=== PATIENT | male | born 1985 | race Caucasian/White ===

== ENCOUNTER 2017-09-30 12:35 | Inpatient (IN) | payer BC ==
--- NOTE | 2017-09-30 20:23 | HP ---
COWS - Scale Resting Pulse: 2= [place] 101-120 Sweatin=Flushed/Facial Moisture Restless Observation: 1= Difficult to Sit Still Pupil Size: 1= Pupils >than Normal Bone or Joint Aches: 2= Severe Diffuse Aches Runny Nose/ Eye Tearin= Nasal Congestion GI Upset > 30mins: 2= Nausea/Diarrhea Tremor Observation: 2= Slight Tremor Visible Yawning Observation: 0= None Anxiety or Irritability: 1=Feels Anxious/Irritable Goose Flesh Skin: 0=Smooth Skin COWS Score: 14 CIWA Score - CIWA Score Nausea/Vomitin Muscle Tremors: 3 Anxiety: 3 Agitation: 2 Paroxysmal Sweats: 3 Orientation: 0-Oriented Tacttile Disturbances: 2-Mild Itch/Numbness/Burn Auditory Disturbances: 2-Mild Harshness/Frighten Visual Disturbances: 2-Mild Sensitivity Headache: 2-Mild CIWA-Ar Total Score: 22 Admission ROS BHS - HPI Chief Complaint: DEPENDENT ON ETOH ONLY USED MARIJUANA ONLY ONCE TODAY AND NEVER BEFORE ON [facility] - 145 MGS. - LAST DOSE THIS AM Allergies/Adverse Reactions: Allergies Allergy/AdvReac Type Severity Reaction Status Date / Time diphenhydramine Allergy Verified 09/30/17 20:22 [From Benadryl] CARO Allergy Uncoded 09/30/17 20:22 Exam Limitations: No Limitations - Ebola screening Have you traveled outside of the country in the last 21 days: No (N) Have you had contact with anyone from an Ebola affected area: No Have you been sick,other than usual withdrawal symptoms: No Do you have a fever: No - Review of Systems Constitutional: See HPI, Malaise, Weakness EENT: reports: See HPI, Nose Congestion Respiratory: reports: See HPI Cardiac: reports: See HPI, Syncope GI: reports: See HPI, Nausea, Vomiting, Abdominal cramping : reports: No Symptoms Reported, See HPI Musculoskeletal: reports: See HPI, Back Pain, Muscle Pain, Muscle Weakness Integumentary: reports: See HPI, Flushing, Sweating Neuro: reports: See HPI, Headache, Tremors, Weakness Endocrine: reports: See HPI Hematology: reports: See HPI Psychiatric: reports: Judgement Intact, Orientated x3, Anxious Patient History - Patient Medical History Hx Asthma: No Hx Chronic Obstructive Pulmonary Disease (COPD): No Hx Cardiac Disorders: No Hx Hypertension: No Hx Seizures: No Hx Diabetes: No Hx Gastrointestinal Disorders: No Hx Genitourinary Disorders: No Hx Sexually Transmitted Disorders: No Hx Renal Disease (ESRD): No Hx Human Immunodeficiency Virus (HIV): No Hx Hepatitis C: No Hx Depression: No Hx Suicide Attempt: No Hx Schizophrenia: No Other Medical History: PTSD AND ADD; CH. LBP.; OBESITY - Patient Surgical History Past Surgical History: Yes Hx Neurologic Surgery: No Hx Cataract Extraction: No Hx Cardiac Surgery: No Hx Lung Surgery: No Hx Breast Surgery: No Hx Breast Biopsy: No Hx Abdominal Surgery: Yes (RADHA. INGUINAL HERNIA REPAIR 14 YRS. AGO.) Hx Appendectomy: No Hx Cholecystectomy: No Hx Genitourinary Surgery: No Hx Section: No Hx Orthopedic Surgery: No Anesthesia Reaction: No - PPD History Previous Implant?: Yes Documented Results: Negative w/o proof - Smoking Cessation Smoking history: Current every day smoker Have you smoked in the past 12 months: Yes Aproximately how many cigarettes per day: 40 Hx Chewing Tobacco Use: No Initiated information on smoking cessation: Yes 'Breaking Loose' booklet given: 09/30/17 - Substance & Tx. History Hx Alcohol Use: Yes Hx Substance Use: Yes Substance Use Type: Marijuana, Prescribed Hx Substance Use Treatment: Yes - Substances Abused Alcohol Route: Oral Frequency: Daily Amount used: LIQUOR- 3 -4 PINT Age of first use: 30 Date of Last Use: 09/30/17 Marijuana/Hashish Route: Smoking Frequency: Daily Amount used: ONE J ONLY ONCE TODAY Age of first use: 32 Date of Last Use: 09/30/17 Family Disease History - Family Disease History Family Disease History: Other: Father (STOPPED ETOH SEVERAL YRS. AGO) Admission Physical Exam S - Vital Signs Vital Signs: Vital Signs - 24 hr 09/30/17 17:03 Temperature 97.2 F L Pulse Rate 101 H Respiratory 18 Rate Blood Pressure 155/99 - Physical General Appearance: Yes: No Apparent Distress, Nourished, Alcohol on Breath, Obese, Tremorous, Sweating, Anxious HEENTM: Yes: Hearing grossly Normal, Normocephalic, Normal Voice, KEELY, Pharynx Normal, Nasal Congestion Respiratory: Yes: Chest Non-Tender, Lungs Clear, Normal Breath Sounds, No Respiratory Distress, No Accessory Muscle Use Neck: Yes: No masses,lesions,Nodules, Supple, Trachea in good position Breast: Yes: Breast Exam Deferred, Axillae without masses, No masses Cardiology: Yes: Regular Rhythm, S1, S2, Tachycardia Abdominal: Yes: Normal Bowel Sounds, Non Tender, Soft, Protuberent, Distended Back: Yes: Decreased Range of Motion, Muscle Spasm Musculoskeletal: Yes: full range of Motion, Gait Steady, Back pain, Muscle Pain , Muscle weakness Extremities: Yes: Normal Capillary Refill, Normal Range of Motion, Non-Tender, Tremors Neurological: Yes: Fully Oriented, Alert, Motor Strength 5/5, Normal Response, Depressed Affect Integumentary: Yes: Warm, Moist Lymphatic: Yes: Within Normal Limits - Diagnostic (1) EtOH dependence Current Visit: Yes Status: Chronic Qualifiers: Substance use status: uncomplicated Qualified Code(s): F10.20 - Alcohol dependence, uncomplicated (2) Obesity Current Visit: Yes Status: Chronic Qualifiers: Obesity classification: unspecified obesity classification (3) Methadone maintenance therapy patient Current Visit: Yes Status: Chronic (4) Chronic low back pain Current Visit: Yes Status: Chronic Qualifiers: Back pain laterality: midline (5) PTSD (post-traumatic stress disorder) Current Visit: Yes Status: Acute (6) ADD (attention deficit disorder) Current Visit: Yes Status: Acute Cleared for Admission [facility] - Detox or Rehab [facility] Level of Care: Medically Managed Detox Regimen/Protocol: Librium [facility] Breath Alcohol Content Breath Alcohol Content: 0.184 Urine Drug Screen - Results Drug Screen Negative: No Urine Drug Screen Results: THC-Marijuana, CRISTAL-Cocaine, MTD-Methadone
[2017-09-30] MEDS ORDERED: P-EPHED 60MG/TRIPROLIDI 2.5MG TABLET PO PRN (20:38)
[2017-09-30] MEDS ORDERED: chlordiazePOXIDE HCL 25 MG CAPSULE PO PRN (20:38)
[2017-09-30] MEDS ORDERED: guaiFENesin/D-METHORPHAN HB 10 ML UNIT-DOSE CUPS PO PRN (20:38)
[2017-09-30] MEDS ORDERED: MENTHOL/PHENOL 1 EACH UD MM PRN (20:38)
[2017-09-30] MEDS ORDERED: LOPERAMIDE HCL 2 MG CAPSULE PO PRN (20:38)
[2017-09-30] MEDS ORDERED: chlordiazePOXIDE HCL 25 MG CAPSULE PO ONE (20:38)
[2017-09-30] MEDS ORDERED: MAGNESIUM CITRATE 300 ML BOTTLE PO PRN (20:38)
[2017-09-30] MEDS ORDERED: MAG HYDROX/AL HYDROX/SIMETH 30 ML UNIT-DOSE CUP PO PRN (20:38)
[2017-09-30] MEDS ORDERED: ACETAMINOPHEN 325 MG TABLET (FP) PO PRN (20:38)
[2017-09-30] MEDS ORDERED: MAGNESIUM HYDROX 2400MG/30ML ORAL SUSPENSION 30 ML CUP PO PRN (20:38)
[2017-09-30] MEDS: chlordiazePOXIDE HCL 25 MG CAPSULE PO SCH (22:40)
[2017-09-30] MEDS: THIAMINE HCL 100 MG TABLET (FP) PO SCH (22:40)
[2017-09-30] MEDS: MELATONIN 5 MG TABLETS PO PRN (22:40)
[2017-10-01 01:23] LABS: URINE APPEARANCE TURBID; URINE BILIRUBIN NEGATIVE (<2.0 mg/dL); URINE BLOOD NEGATIVE (NEGATIVE); URINE COLOR YELLOW; URINE GLUCOSE (UA) NEGATIVE (NEGATIVE); URINE KETONE NEGATIVE (NEGATIVE); URINE LEUK ESTERASE TRACE (NEGATIVE); URINE NITRITE NEGATIVE (NEGATIVE); URINE UROBILINOGEN 4.0 E.U/dl mg/dL (0.2-1.0)
[2017-10-01 01:28] LABS: URINE PROTEIN 1+ (NEGATIVE)
[2017-10-01 02:03] LABS: AMORP URATES MANY /hpf (NONE SEEN)
[2017-10-01 02:04] LABS: URINE MUCUS MODERATE
[2017-10-01] MEDS: chlordiazePOXIDE HCL 25 MG CAPSULE PO SCH ×4 (05:45→22:27)
[2017-10-01] MEDS ORDERED: METHADONE 120 MG, METHADONE 20 MG, METHADONE 5 MG PO SCH (06:00)
[2017-10-01] MEDS ORDERED: METHADONE HCL 10 MG TABLET PO SCH (09:15)
[2017-10-01] MEDS: PRENATAL VITAMINS W/ FOLIC ACID TABLET (FP) PO SCH (10:24)
[2017-10-01] MEDS: NICOTINE 21 MG/24 HOURS TOPICAL PATCH TD SCH (10:24)
[2017-10-01 10:37] LABS: HEMATOCRIT 40.2 % (35.4-49); HEMOGLOBIN 13.6 GM/dL (11.7-16.9); MCHC 33.8 g/dl (32.0-35.9); MEAN CELL VOLUME 97.6 fl (80-96); MEAN PLT VOLUME 7.3 fl (7.5-11.1); PLATELET COUNT 215 K/MM3 (134-434); RBC 4.12 M/mm3 (4.00-5.60); WHITE BLOOD COUNT 5.8 K/mm3 (4.0-10.0)
[2017-10-01 10:47] LABS: ALBUMIN 3.5 g/dl (3.4-5.0); ANION GAP 5 (8-16); BLOOD UREA NITROGEN 10 mg/dL (7-18); CALCIUM 8.4 mg/dL (8.5-10.1); CHLORIDE 102 mmol/L (98-107); CO2 34 mmol/L (21-32); GLUCOSE,RANDOM 88 mg/dL (74-106); POTASSIUM 3.9 mmol/L (3.5-5.1); SODIUM 141 mmol/L (136-145)
[2017-10-01] MEDS ORDERED: METHADONE HCL 5 MG TABLET ONE (10:50)
[2017-10-01 10:51] LABS: ALK PHOS 162 U/L (45-117); BILIRUBIN,TOTAL 1.2 mg/dL (0.2-1.0); CREATININE 0.8 mg/dL (0.7-1.3); SGOT/AST 346 U/L (15-37); SGPT/ALT 214 U/L (12-78); TOT PROT 7.2 g/dl (6.4-8.2)
[2017-10-01] MEDS ORDERED: METHADONE HCL 10 MG TABLET ONE (10:52)
[2017-10-01] MEDS ORDERED: METHADONE HCL 40 MG DISPERSABLE TABLET ONE (10:52)
[2017-10-01] MEDS: METHADONE 120 MG, METHADONE 20 MG, METHADONE 5 MG PO SCH (10:53)
--- NOTE | 2017-10-01 16:33 | CONSULT ---
[facility] Psychiatric Consult - Data Date of interview: 10/01/17 Admission source: [facility] Identifying data: First admission to [facility] for this 32 y/o male seeking detox treatment on for alcohol and cannabis dependence.Patient is single without dependents,domiciled,unemployed and supported by relatives. Substance Abuse History: Discussed with the patient.Mr Blackmon confirmed his self -report at [facility] on admission.Details as follows : Smoking history: Current every day smoker. Have you smoked in the past 12 months: Yes. Aproximately how many cigarettes per day: 40. Hx Chewing Tobacco Use: No. Initiated information on smoking cessation: Yes. 'Breaking Loose' booklet given: 09/30/17. - Substance & Tx. History. Hx Alcohol Use: Yes. Hx Substance Use: Yes. Substance Use Type : Marijuana, Prescribed. Hx Substance Use Treatment: Yes. - Substances Abused. Alcohol. Route: Oral. Frequency: Daily. Amount used: LIQUOR- 3 - 4 PINT. Age of first use: 30. Date of Last Use: 09/30/17. Marijuana/ Hashish. Route: Smoking. Frequency: Daily. Amount used: ONE J ONLY ONCE TODAY. Age of first use: 32. Date of Last Use: 09/30/17 Medical History: Obseity,lumbar pain,chronic cervical pain and a remote history of bilateral herniorraphy. Psychiatric History: No reported history of psychiatric hopsitalizations.Patient is diagnosed with ADD and PTSD.Mr Blackmon currently sees a psychiatrist at a clinic in [facility].Prescribed adderall 20 mg po bid.Patient is also on methadone maintenance (145 mg/day) at the [facility] ([place]).Denies history of suicide attempts. Physical/Sexual Abuse/Trauma History: Patient declines to discuss this domain. Additional Comment: Urine Drug Screen Results: THC-Marijuana, CRISTAL-Cocaine, MTD- Methadone.Noted. Mental Status Exam - Mental Status Exam Alert and Oriented to: Time, Place, Person Cognitive Function: Good Patient Appearance: Well Groomed Mood: Nervous, Withdrawn, Anxious Affect: Mood Congruent Patient Behavior: Fatigued, Appropriate, Cooperative Speech Pattern: Clear, Appropriate Voice Loudness: Normal Thought Process: Intact, Goal Oriented Thought Disorder: Not Present Hallucinations: Denies Suicidal Ideation: Denies Homicidal Ideation: Denies Insight/Judgement: Poor Sleep: Poorly, Difficulty falling asleep Appetite: Good Muscle strength/Tone: Normal Gait/Station: Normal Psychiatric Findings - Problem List ([place] 1, 2,3) (1) Opioid dependence on agonist therapy Current Visit: Yes Status: Acute (2) Alcohol dependence Current Visit: Yes Status: Acute (3) Cocaine dependence Current Visit: Yes Status: Acute (4) Marihuana dependence Current Visit: Yes Status: Acute (5) Nicotine dependence Current Visit: Yes Status: Acute (6) ADD (attention deficit disorder) Current Visit: Yes Status: Acute (7) PTSD (post-traumatic stress disorder) Current Visit: Yes Status: Acute (8) History of bipolar disorder Current Visit: Yes Status: Chronic (9) Substance induced mood disorder Current Visit: Yes Status: Acute (10) Insomnia Current Visit: Yes Status: Acute - Initial Treatment Plan Initial Treatment Plan: Psychoeducation.Sleep hygiene discussed in this session.Detoxification in progress.Trazodone 50 mg po hs (patient's request).Mr Blackmon is made aware of the risk of priapism." I have taken trazodone before and I slept much better without any problem ".Patient agrees with this careplan.Observation.Medications are confirmed by pharmacy claims at [facility] [employer] (08/25/17).
--- NOTE | 2017-10-01 19:20 | PN ---
S CIWA - CIWA Score Nausea/Vomitin Muscle Tremors: 3 Anxiety: 3 Agitation: 3 Paroxysmal Sweats: 2 Orientation: 0-Oriented Tacttile Disturbances: 0-None Auditory Disturbances: 0-None Visual Disturbances: 0-None Headache: 0-None Present CIWA-Ar Total Score: 14 BHS Progress Note (SOAP) Subjective: shakes sweats sleep disturbance Objective: 10/01/17 19:18 A & O x 3 Anxious Vital Signs Temperature 97.5 F L 10/01/17 18:26 Pulse Rate 72 10/01/17 18:26 Respiratory Rate 18 10/01/17 18:26 Blood Pressure 133/81 10/01/17 18:26 O2 Sat by Pulse Oximetry (%) Laboratory Last Values WBC 5.8 K/mm3 (4.0-10.0) 10/01/17 07:50 RBC 4.12 M/mm3 (4.00-5.60) 10/01/17 07:50 Hgb 13.6 GM/dL (11.7-16.9) 10/01/17 07:50 Hct 40.2 % (35.4-49) 10/01/17 07:50 MCV 97.6 fl (80-96) H 10/01/17 07:50 MCH 33.0 pg (25.7-33.7) 10/01/17 07:50 MCHC 33.8 g/dl (32.0-35.9) 10/01/17 07:50 RDW 14.0 % (11.9-15.9) 10/01/17 07:50 Plt Count 215 K/MM3 (134-434) 10/01/17 07:50 MPV 7.3 fl (7.5-11.1) L 10/01/17 07:50 Sodium 141 mmol/L (136-145) 10/01/17 07:50 Potassium 3.9 mmol/L (3.5-5.1) 10/01/17 07:50 Chloride 102 mmol/L (98-107) 10/01/17 07:50 Carbon Dioxide 34 mmol/L (21-32) H 10/01/17 07:50 Anion Gap 5 (8-16) L 10/01/17 07:50 BUN 10 mg/dL (7-18) 10/01/17 07:50 Creatinine 0.8 mg/dL (0.7-1.3) 10/01/17 07:50 Creat Clearance w eGFR > 60 (>60) 10/01/17 07:50 Random Glucose 88 mg/dL (74-106) 10/01/17 07:50 Calcium 8.4 mg/dL (8.5-10.1) L 10/01/17 07:50 Total Bilirubin 1.2 mg/dL (0.2-1.0) H 10/01/17 07:50 AST 346 U/L (15-37) H 10/01/17 07:50 ALT 214 U/L (12-78) H 10/01/17 07:50 Alkaline Phosphatase 162 U/L (45-117) H 10/01/17 07:50 Total Protein 7.2 g/dl (6.4-8.2) 10/01/17 07:50 Albumin 3.5 g/dl (3.4-5.0) 10/01/17 07:50 Urine Color Yellow 09/30/17 22:23 Urine Appearance Turbid 09/30/17 22:23 Urine pH 6.0 (5.0-8.0) 09/30/17 22:23 Ur Specific [place] 1.029 (1.001-1.035) 09/30/17 22:23 Urine Protein 1+ (NEGATIVE) H 09/30/17 22:23 Urine Glucose (UA) Negative (NEGATIVE) 09/30/17 22:23 Urine Ketones Negative (NEGATIVE) 09/30/17 22:23 Urine Blood Negative (NEGATIVE) 09/30/17 22:23 Urine Nitrite Negative (NEGATIVE) 09/30/17 22: Urine Bilirubin Negative (<2.0 mg/dL) 09/30/17 22: Urine Urobilinogen 4.0 e.u/dl mg/dL (0.2-1.0) 09/30/17 22:23 Ur Leukocyte Esterase Trace (NEGATIVE) 09/30/17 22: Urine WBC (Auto) None seen /hpf (3-5) 09/30/17 22:23 Urine RBC (Auto) None seen /hpf (0-3) 09/30/17 22:23 Amorphous Urates Many /hpf (NONE SEEN) 09/30/17 22:23 Urine Mucus Moderate 09/30/17 22:23 RPR Titer Nonreactive (NONREACTIVE) 10/01/17 07:50 labs noted Assessment: 10/01/17 19:20 withdrawal sx Plan: continue detox Increase hydration
[2017-10-01] MEDS: traZODone HCL 50 MG TABLET (FP) PO SCH (22:27)
[2017-10-01] MEDS: THIAMINE HCL 100 MG TABLET (FP) PO SCH (22:27)
[2017-10-02] MEDS ORDERED: METHADONE HCL 10 MG TABLET ONE (04:18)
[2017-10-02] MEDS ORDERED: METHADONE HCL 40 MG DISPERSABLE TABLET ONE (04:18)
[2017-10-02] MEDS ORDERED: METHADONE HCL 5 MG TABLET ONE (04:18)
[2017-10-02] MEDS: chlordiazePOXIDE HCL 25 MG CAPSULE PO SCH ×3 (05:38→16:56)
[2017-10-02] MEDS: METHADONE 120 MG, METHADONE 20 MG, METHADONE 5 MG PO SCH (05:39)
[2017-10-02] MEDS ORDERED: METHADONE 120 MG, METHADONE 20 MG, METHADONE 5 MG PO SCH (06:00)
[2017-10-02] MEDS: PRENATAL VITAMINS W/ FOLIC ACID TABLET (FP) PO SCH (10:20)
[2017-10-02] MEDS: NICOTINE 21 MG/24 HOURS TOPICAL PATCH TD SCH (10:20)
[2017-10-02] MEDS: hydrOXYzine PAMOATE 50 MG CAPSULE (FP) PO PRN ×3 (10:23→20:50)
--- NOTE | 2017-10-02 11:57 | PN ---
[facility] CIWA - CIWA Score Nausea/Vomitin-No Nausea/No Vomiting Muscle Tremors: 4-Moderate,w/Arms Extend Anxiety: 2 Agitation: 3 Paroxysmal Sweats: 3 Orientation: 0-Oriented Tacttile Disturbances: 0-None Auditory Disturbances: 0-None Visual Disturbances: 0-None Headache: 0-None Present CIWA-Ar Total Score: 12 S Progress Note (SOAP) Subjective: leg cramps sweats shakes interrupted sleep body aches Objective: 10/02/17 11:56 Vital Signs Temperature 97.7 F 10/02/17 10:22 Pulse Rate 74 10/02/17 10:22 Respiratory Rate 18 10/02/17 10:22 Blood Pressure 116/64 10/02/17 10:22 O2 Sat by Pulse Oximetry (%) Laboratory Tests 09/30/17 10/01/17 10/01/17 22:23 07:50 07:50 WBC 5.8 RBC 4.12 Hgb 13.6 Hct 40.2 MCV 97.6 H MCH 33.0 MCHC 33.8 RDW 14.0 Plt Count 215 MPV 7.3 L Sodium 141 Potassium 3.9 Chloride 102 Carbon Dioxide 34 H Anion Gap 5 L BUN 10 Creatinine 0.8 Creat Clearance w eGFR > 60 Random Glucose 88 Calcium 8.4 L Total Bilirubin 1.2 H AST 346 H ALT 214 H Alkaline Phosphatase 162 H Total Protein 7.2 Albumin 3.5 Urine Color Yellow Urine Appearance Turbid Urine pH 6.0 Ur Specific [place] 1.029 Urine Protein 1+ H Urine Glucose (UA) Negative Urine Ketones Negative Urine Blood Negative Urine Nitrite Negative Urine Bilirubin Negative Urine Urobilinogen 4.0 e.u/dl Ur Leukocyte Esterase Trace Urine WBC (Auto) None seen Urine RBC (Auto) None seen Amorphous Urates Many Urine Mucus Moderate RPR Titer 10/01/17 07:50 WBC RBC Hgb Hct MCV MCH MCHC RDW Plt Count MPV Sodium Potassium Chloride Carbon Dioxide Anion Gap BUN Creatinine Creat Clearance w eGFR Random Glucose Calcium Total Bilirubin AST ALT Alkaline Phosphatase Total Protein Albumin Urine Color Urine Appearance Urine pH Ur Specific [place] Urine Protein Urine Glucose (UA) Urine Ketones Urine Blood Urine Nitrite Urine Bilirubin Urine Urobilinogen Ur Leukocyte Esterase Urine WBC (Auto) Urine RBC (Auto) Amorphous Urates Urine Mucus RPR Titer Nonreactive aaox3 ambulating no acute distress elevated ast/alt d/c tylenol Assessment: 10/02/17 11:56 withdrawal sx Plan: continue detox increase fluids flexiril prn repeat ast/alt blood work
[2017-10-02] MEDS: CYCLOBENZAPRINE HCL 10 MG TABLET (FP) PO PRN ×2 (13:24→22:09)
[2017-10-02] MEDS: IBUPROFEN 400 MG TABLET (FP) PO PRN ×2 (16:57→22:09)
[2017-10-02] MEDS: traZODone HCL 50 MG TABLET (FP) PO SCH (22:09)
[2017-10-02] MEDS: chlordiazePOXIDE 5 MG CAPSULE PO SCH (22:09)
[2017-10-02] MEDS: THIAMINE HCL 100 MG TABLET (FP) PO SCH (22:10)
[2017-10-03] MEDS ORDERED: METHADONE HCL 5 MG TABLET ONE (04:56)
[2017-10-03] MEDS ORDERED: METHADONE HCL 40 MG DISPERSABLE TABLET ONE (04:57)
[2017-10-03] MEDS ORDERED: METHADONE HCL 10 MG TABLET ONE (04:57)
[2017-10-03] MEDS: METHADONE 120 MG, METHADONE 20 MG, METHADONE 5 MG PO SCH (05:34)
[2017-10-03] MEDS: chlordiazePOXIDE 5 MG CAPSULE PO SCH ×3 (05:34→17:07)
[2017-10-03] MEDS: NICOTINE 21 MG/24 HOURS TOPICAL PATCH TD SCH (10:17)
[2017-10-03] MEDS: PRENATAL VITAMINS W/ FOLIC ACID TABLET (FP) PO SCH (10:17)
[2017-10-03] MEDS: hydrOXYzine PAMOATE 50 MG CAPSULE (FP) PO PRN ×2 (10:17→18:25)
--- NOTE | 2017-10-03 10:20 | PN ---
BHS Progress Note (SOAP) Subjective: feeling better less tremor no sweat slept better at night Objective: 10/03/17 10:18 Vital Signs Temperature 97.7 F 10/03/17 09:39 Pulse Rate 65 10/03/17 09:39 Respiratory Rate 20 10/03/17 09:39 Blood Pressure 107/64 10/03/17 09:39 O2 Sat by Pulse Oximetry (%) Laboratory Last Values WBC 5.8 K/mm3 (4.0-10.0) 10/01/17 07:50 RBC 4.12 M/mm3 (4.00-5.60) 10/01/17 07:50 Hgb 13.6 GM/dL (11.7-16.9) 10/01/17 07:50 Hct 40.2 % (35.4-49) 10/01/17 07:50 MCV 97.6 fl (80-96) H 10/01/17 07:50 MCH 33.0 pg (25.7-33.7) 10/01/17 07:50 MCHC 33.8 g/dl (32.0-35.9) 10/01/17 07:50 RDW 14.0 % (11.9-15.9) 10/01/17 07:50 Plt Count 215 K/MM3 (134-434) 10/01/17 07:50 MPV 7.3 fl (7.5-11.1) L 10/01/17 07:50 Sodium 141 mmol/L (136-145) 10/01/17 07:50 Potassium 3.9 mmol/L (3.5-5.1) 10/01/17 07:50 Chloride 102 mmol/L (98-107) 10/01/17 07:50 Carbon Dioxide 34 mmol/L (21-32) H 10/01/17 07:50 Anion Gap 5 (8-16) L 10/01/17 07:50 BUN 10 mg/dL (7-18) 10/01/17 07:50 Creatinine 0.8 mg/dL (0.7-1.3) 10/01/17 07:50 Creat Clearance w eGFR > 60 (>60) 10/01/17 07:50 Random Glucose 88 mg/dL (74-106) 10/01/17 07:50 Calcium 8.4 mg/dL (8.5-10.1) L 10/01/17 07:50 Total Bilirubin 1.2 mg/dL (0.2-1.0) H 10/01/17 07:50 AST 346 U/L (15-37) H 10/01/17 07:50 ALT 214 U/L (12-78) H 10/01/17 07:50 Alkaline Phosphatase 162 U/L (45-117) H 10/01/17 07:50 Total Protein 7.2 g/dl (6.4-8.2) 10/01/17 07:50 Albumin 3.5 g/dl (3.4-5.0) 10/01/17 07:50 Urine Color Yellow 09/30/17 22:23 Urine Appearance Turbid 09/30/17 22:23 Urine pH 6.0 (5.0-8.0) 09/30/17 22:23 Ur Specific [place] 1.029 (1.001-1.035) 09/30/17 22:23 Urine Protein 1+ (NEGATIVE) H 09/30/17 22:23 Urine Glucose (UA) Negative (NEGATIVE) 09/30/17 22:23 Urine Ketones Negative (NEGATIVE) 09/30/17 22:23 Urine Blood Negative (NEGATIVE) 09/30/17 22: Urine Nitrite Negative (NEGATIVE) 09/30/17 22: Urine Bilirubin Negative (<2.0 mg/dL) 09/30/17 22:23 Urine Urobilinogen 4.0 e.u/dl mg/dL (0.2-1.0) 09/30/17 22:23 Ur Leukocyte Esterase Trace (NEGATIVE) 09/30/17 22:23 Urine WBC (Auto) None seen /hpf (3-5) 09/30/17 22:23 Urine RBC (Auto) None seen /hpf (0-3) 09/30/17 22:23 Amorphous Urates Many /hpf (NONE SEEN) 09/30/17 22: Urine Mucus Moderate 09/30/17 22:23 RPR Titer Nonreactive (NONREACTIVE) 10/01/17 07:50 lab noted repeat liver enzyme pending Assessment: 10/03/17 10:19 mild withdrawal sx Plan: medically supervised detox elevation of liver enzyme
[2017-10-03] MEDS: CYCLOBENZAPRINE HCL 10 MG TABLET (FP) PO PRN ×2 (10:22→17:09)
[2017-10-03 10:49] LABS: SGOT/AST 192 U/L (15-37); SGPT/ALT 167 U/L (12-78)
[2017-10-03] MEDS: IBUPROFEN 400 MG TABLET (FP) PO PRN ×2 (11:04→22:34)
[2017-10-03] MEDS: THIAMINE HCL 100 MG TABLET (FP) PO SCH (22:34)
[2017-10-03] MEDS: traZODone HCL 50 MG TABLET (FP) PO SCH (22:34)
[2017-10-03] MEDS: chlordiazePOXIDE HCL 10 MG CAPSULE PO SCH (22:34)
--- NOTE | 2017-10-04 00:51 | EKG ---
Test Reason : Blood Pressure : / mmHG Vent. Rate : 092 BPM Atrial Rate : 092 BPM P-R Int : 162 ms QRS Dur : 100 ms QT Int : 388 ms P-R-T Axes : 038 049 040 degrees QTc Int : 479 ms NORMAL SINUS RHYTHM NORMAL ECG NO PREVIOUS ECGS AVAILABLE Confirmed by SHMUEL TRUJILLO MD ([id number]) on 10/04/2017 12:51:27 AM Referred By: Confirmed By:SHMUEL TRUJILLO MD
[2017-10-04] MEDS ORDERED: METHADONE HCL 5 MG TABLET ONE (04:50)
[2017-10-04] MEDS ORDERED: METHADONE HCL 10 MG TABLET ONE (04:51)
[2017-10-04] MEDS ORDERED: METHADONE HCL 40 MG DISPERSABLE TABLET ONE (04:51)
[2017-10-04] MEDS: METHADONE 120 MG, METHADONE 20 MG, METHADONE 5 MG PO SCH (05:50)
[2017-10-04] MEDS: chlordiazePOXIDE HCL 10 MG CAPSULE PO SCH ×3 (05:50→18:05)
[2017-10-04] MEDS: hydrOXYzine PAMOATE 50 MG CAPSULE (FP) PO PRN ×5 (05:53→22:22)
[2017-10-04] MEDS: CYCLOBENZAPRINE HCL 10 MG TABLET (FP) PO PRN ×2 (10:18→22:22)
[2017-10-04] MEDS: IBUPROFEN 400 MG TABLET (FP) PO PRN (10:18)
[2017-10-04] MEDS: PRENATAL VITAMINS W/ FOLIC ACID TABLET (FP) PO SCH (10:18)
[2017-10-04] MEDS: NICOTINE 21 MG/24 HOURS TOPICAL PATCH TD SCH (10:19)
--- NOTE | 2017-10-04 10:32 | DS ---
[facility] Detox Discharge Summary Admission Date: 09/30/17 Discharge Date: 10/04/17 - History Present History: Alcohol Dependence Additional Comments: 32 years old male admitted on 09/30/17 for alcohol withdrawal sx completed detox regimen tolerated well denies denies alcohol withdrawal sx alert oriented x 3 no acute distress wants aftercare [facility] to maintain sobriety in the process of recovery - Physical Exam Results Vital Signs: Vital Signs Temperature 97.2 F L 10/04/17 09:17 Pulse Rate 84 10/04/17 09:17 Respiratory Rate 20 10/04/17 09:17 Blood Pressure 127/81 10/04/17 09:17 O2 Sat by Pulse Oximetry (%) Pertinent Admission Physical Exam Findings: Vital Signs Temperature 97.2 F L 10/04/17 09:17 Pulse Rate 84 10/04/17 09:17 Respiratory Rate 20 10/04/17 09:17 Blood Pressure 127/81 10/04/17 09:17 O2 Sat by Pulse Oximetry (%) Laboratory Last Values WBC 5.8 K/mm3 (4.0-10.0) 10/01/17 07:50 RBC 4.12 M/mm3 (4.00-5.60) 10/01/17 07:50 Hgb 13.6 GM/dL (11.7-16.9) 10/01/17 07:50 Hct 40.2 % (35.4-49) 10/01/17 07:50 MCV 97.6 fl (80-96) H 10/01/17 07:50 MCH 33.0 pg (25.7-33.7) 10/01/17 07:50 MCHC 33.8 g/dl (32.0-35.9) 10/01/17 07:50 RDW 14.0 % (11.9-15.9) 10/01/17 07:50 Plt Count 215 K/MM3 (134-434) 10/01/17 07:50 MPV 7.3 fl (7.5-11.1) L 10/01/17 07:50 Sodium 141 mmol/L (136-145) 10/01/17 07:50 Potassium 3.9 mmol/L (3.5-5.1) 10/01/17 07:50 Chloride 102 mmol/L (98-107) 10/01/17 07:50 Carbon Dioxide 34 mmol/L (21-32) H 10/01/17 07:50 Anion Gap 5 (8-16) L 10/01/17 07:50 BUN 10 mg/dL (7-18) 10/01/17 07:50 Creatinine 0.8 mg/dL (0.7-1.3) 10/01/17 07:50 Creat Clearance w eGFR > 60 (>60) 10/01/17 07:50 Random Glucose 88 mg/dL (74-106) 10/01/17 07:50 Calcium 8.4 mg/dL (8.5-10.1) L 10/01/17 07:50 Total Bilirubin 1.2 mg/dL (0.2-1.0) H 10/01/17 07:50 AST 192 U/L (15-37) H D 10/03/17 07:00 ALT 167 U/L (12-78) H D 10/03/17 07:00 Alkaline Phosphatase 162 U/L (45-117) H 10/01/17 07:50 Total Protein 7.2 g/dl (6.4-8.2) 10/01/17 07:50 Albumin 3.5 g/dl (3.4-5.0) 10/01/17 07:50 Urine Color Yellow 09/30/17 22:23 Urine Appearance Turbid 09/30/17 22:23 Urine pH 6.0 (5.0-8.0) 09/30/17 22:23 Ur Specific [place] 1.029 (1.001-1.035) 09/30/17 22:23 Urine Protein 1+ (NEGATIVE) H 09/30/17 22:23 Urine Glucose (UA) Negative (NEGATIVE) 09/30/17 22:23 Urine Ketones Negative (NEGATIVE) 09/30/17 22:23 Urine Blood Negative (NEGATIVE) 09/30/17 22: Urine Nitrite Negative (NEGATIVE) 09/30/17 22: Urine Bilirubin Negative (<2.0 mg/dL) 09/30/17 22: Urine Urobilinogen 4.0 e.u/dl mg/dL (0.2-1.0) 09/30/17 22:23 Ur Leukocyte Esterase Trace (NEGATIVE) 09/30/17 22:23 Urine WBC (Auto) None seen /hpf (3-5) 09/30/17 22:23 Urine RBC (Auto) None seen /hpf (0-3) 09/30/17 22:23 Amorphous Urates Many /hpf (NONE SEEN) 09/30/17 22:23 Urine Mucus Moderate 09/30/17 22:23 RPR Titer Nonreactive (NONREACTIVE) 10/01/17 07:50 lab noted lAST ALT lowering health teaching on alcohol related liver enzyme elevation related health consequences - Treatment Hospital Course: Detox Protocol Followed, Detoxed Safely, Responded well, Discharged Condition Good, Rehab Referral Accepted Patient has Accepted a Rehab Referral to: [facility] - Medication Discharge Medications: Ambulatory Orders Dextroamphetamine/Amphetamine [Adderall Xr 20 mg Capsule] 20 mg PO BID 09/30/17 Methadone HCl 145 mg PO DAILY 09/30/17 Trazodone HCl 50 mg PO HS #30 tablet 10/01/17 - Diagnosis (1) Alcohol dependence with uncomplicated withdrawal Current Visit: Yes Status: Acute (2) Nicotine dependence Current Visit: Yes Status: Acute Qualifiers: Nicotine product type: cigarettes Substance use status: in withdrawal Qualified Code(s): F17.213 - Nicotine dependence, cigarettes, with withdrawal (3) Opioid dependence on agonist therapy Current Visit: Yes Status: Chronic - AMA Did Patient Leave Against Medical Advice: No
--- NOTE | 2017-10-04 15:21 | PN ---
[facility] Progress Note Note: RECEIVED COUNSELOR REPORTED THAT [facility] DOES NOT HAVE BED AVAILABLE FOR THE PATIENT AND [facility] POSSIBLE BED AVAILABLE WAITING FOR AFTERCARE ARRANGEMENT
[2017-10-04] MEDS: traZODone HCL 50 MG TABLET (FP) PO SCH (22:22)
[2017-10-04] MEDS: THIAMINE HCL 100 MG TABLET (FP) PO SCH (22:22)
[2017-10-04] MEDS: MELATONIN 5 MG TABLETS PO PRN (22:22)
[2017-10-05] MEDS ORDERED: METHADONE HCL 5 MG TABLET ONE (04:25)
[2017-10-05] MEDS ORDERED: METHADONE HCL 40 MG DISPERSABLE TABLET ONE (04:25)
[2017-10-05] MEDS ORDERED: METHADONE HCL 10 MG TABLET ONE (04:25)
[2017-10-05] MEDS: METHADONE 120 MG, METHADONE 20 MG, METHADONE 5 MG PO SCH (06:04)
[2017-10-05] MEDS: hydrOXYzine PAMOATE 50 MG CAPSULE (FP) PO PRN ×2 (06:05→09:44)
[2017-10-05] MEDS: CYCLOBENZAPRINE HCL 10 MG TABLET (FP) PO PRN (06:06)
[2017-10-05 09:18] VITALS: BP 135/80; PULSE 82; TEMP 97.5
--- NOTE | 2017-10-05 09:36 | DS ---
[facility] Detox Discharge Summary Admission Date: 09/30/17 Discharge Date: 10/05/17 - History Present History: Alcohol Dependence Additional Comments: 32 years old admitted 09/30/17 for alcohol withdrawal sx patient completed alcohol detox regimen patient agrees to follow up with aftercare as per counselor arranged - Physical Exam Results Vital Signs: Vital Signs Temperature 97.5 F L 10/05/17 09:17 Pulse Rate 82 10/05/17 09:17 Respiratory Rate 20 10/05/17 09:17 Blood Pressure 135/80 10/05/17 09:17 O2 Sat by Pulse Oximetry (%) Pertinent Admission Physical Exam Findings: Vital Signs Temperature 97.5 F L 10/05/17 09:17 Pulse Rate 82 10/05/17 09:17 Respiratory Rate 20 10/05/17 09:17 Blood Pressure 135/80 10/05/17 09:17 O2 Sat by Pulse Oximetry (%) Laboratory Last Values WBC 5.8 K/mm3 (4.0-10.0) 10/01/17 07:50 RBC 4.12 M/mm3 (4.00-5.60) 10/01/17 07:50 Hgb 13.6 GM/dL (11.7-16.9) 10/01/17 07:50 Hct 40.2 % (35.4-49) 10/01/17 07:50 MCV 97.6 fl (80-96) H 10/01/17 07:50 MCH 33.0 pg (25.7-33.7) 10/01/17 07:50 MCHC 33.8 g/dl (32.0-35.9) 10/01/17 07:50 RDW 14.0 % (11.9-15.9) 10/01/17 07:50 Plt Count 215 K/MM3 (134-434) 10/01/17 07:50 MPV 7.3 fl (7.5-11.1) L 10/01/17 07:50 Sodium 141 mmol/L (136-145) 10/01/17 07:50 Potassium 3.9 mmol/L (3.5-5.1) 10/01/17 07:50 Chloride 102 mmol/L (98-107) 10/01/17 07:50 Carbon Dioxide 34 mmol/L (21-32) H 10/01/17 07:50 Anion Gap 5 (8-16) L 10/01/17 07:50 BUN 10 mg/dL (7-18) 10/01/17 07:50 Creatinine 0.8 mg/dL (0.7-1.3) 10/01/17 07:50 Creat Clearance w eGFR > 60 (>60) 10/01/17 07:50 Random Glucose 88 mg/dL (74-106) 10/01/17 07:50 Calcium 8.4 mg/dL (8.5-10.1) L 10/01/17 07:50 Total Bilirubin 1.2 mg/dL (0.2-1.0) H 10/01/17 07:50 AST 192 U/L (15-37) H D 10/03/17 07:00 ALT 167 U/L (12-78) H D 10/03/17 07:00 Alkaline Phosphatase 162 U/L (45-117) H 10/01/17 07:50 Total Protein 7.2 g/dl (6.4-8.2) 10/01/17 07:50 Albumin 3.5 g/dl (3.4-5.0) 10/01/17 07:50 Urine Color Yellow 09/30/17 22:23 Urine Appearance Turbid 09/30/17 22:23 Urine pH 6.0 (5.0-8.0) 09/30/17 22:23 Ur Specific [place] 1.029 (1.001-1.035) 09/30/17 22:23 Urine Protein 1+ (NEGATIVE) H 09/30/17 22:23 Urine Glucose (UA) Negative (NEGATIVE) 09/30/17 22:23 Urine Ketones Negative (NEGATIVE) 09/30/17 22:23 Urine Blood Negative (NEGATIVE) 09/30/17 22:23 Urine Nitrite Negative (NEGATIVE) 09/30/17 22:23 Urine Bilirubin Negative (<2.0 mg/dL) 09/30/17 22: Urine Urobilinogen 4.0 e.u/dl mg/dL (0.2-1.0) 09/30/17 22:23 Ur Leukocyte Esterase Trace (NEGATIVE) 09/30/17 22:23 Urine WBC (Auto) None seen /hpf (3-5) 09/30/17 22:23 Urine RBC (Auto) None seen /hpf (0-3) 09/30/17 22:23 Amorphous Urates Many /hpf (NONE SEEN) 09/30/17 22:23 Urine Mucus Moderate 09/30/17 22:23 RPR Titer Nonreactive (NONREACTIVE) 10/01/17 07:50 lab noted - Treatment Hospital Course: Detox Protocol Followed, Detoxed Safely, Responded well, Discharged Condition Good, Rehab Referral Accepted Patient has Accepted a Rehab Referral to: as per counselor arranged - Medication Discharge Medications: Ambulatory Orders Dextroamphetamine/Amphetamine [Adderall Xr 20 mg Capsule] 20 mg PO BID 09/30/17 Methadone HCl 145 mg PO DAILY 09/30/17 Trazodone HCl 50 mg PO HS #30 tablet 10/01/17 - Diagnosis (1) Alcohol dependence with uncomplicated withdrawal Current Visit: Yes Status: Acute (2) Nicotine dependence Current Visit: Yes Status: Acute Qualifiers: Nicotine product type: cigarettes Substance use status: in withdrawal Qualified Code(s): F17.213 - Nicotine dependence, cigarettes, with withdrawal (3) Opioid dependence on agonist therapy Current Visit: Yes Status: Chronic - AMA Did Patient Leave Against Medical Advice: No
[2017-10-05] MEDS: NICOTINE 21 MG/24 HOURS TOPICAL PATCH TD SCH (09:44)
[2017-10-05] MEDS: PRENATAL VITAMINS W/ FOLIC ACID TABLET (FP) PO SCH (09:44)
== END 2017-10-05 10:30 | disposition home or self-care (01) | DRG 773 ==
LOC: YASAS 12:35 → Y6N 21:11
PROVIDERS: ADMIT Surgery; ATTEND Surgery
PROC: HZ2ZZZZ Detoxification Services for Substance Abuse Treatment (ICD-10-PCS; principal; 2017-09-30)
DX: F11.20 Opioid dependence, uncomplicated (principal); F10.230 Alcohol dependence with withdrawal, uncomplicated; F14.20 Cocaine dependence, uncomplicated; F17.213 Nicotine dependence, cigarettes, with withdrawal; F98.8 Other specified behavioral and emotional disorders with onset usually occurring in childhood and adolescence; F43.10 Post-traumatic stress disorder, unspecified; F19.24 Other psychoactive substance dependence with psychoactive substance-induced mood disorder; G47.00 Insomnia, unspecified
CPT/HCPCS: 36415; 80053; 81003; 81015; 84450; 84460; 85027; 86593; 93005; 93010